=== PATIENT | male | born 1990 | race Caucasian/White ===

== ENCOUNTER 2024-08-01 16:01 | Emergency (ER) | payer BC, MEDICAID ==
[2024-08-01] MEDS: Acetaminophen 500 MG Tab PO ONE (16:55)
== END 2024-08-01 18:04 | disposition home or self-care (01) ==
LOC: MW.ED 16:01
DX: S92.352A Displaced fracture of fifth metatarsal bone, left foot, initial encounter for closed fracture (principal); Z75.8 Other problems related to medical facilities and other health care; V00.131A Fall from skateboard, initial encounter
CPT/HCPCS: 73610; 73630; 99283; A9270